=== PATIENT | female | born 1990 | race Caucasian/White ===

== ENCOUNTER 2020-10-05 16:33 | Outpatient (REF) | payer MEDICAID, SELFPAY | END 2020-10-05 16:34 | disposition home or self-care (01) | LOC: HO.LAB 16:33 | PROVIDERS: Visit Provider Internal Medicine | DX: Z20.822 Contact with and (suspected) exposure to COVID-19 (principal) | CPT/HCPCS: 36415; C9803; U0003; U0005 ==

== ENCOUNTER 2020-12-08 08:49 | Outpatient (REF) | payer MEDICAID, SELFPAY | END 2020-12-08 08:50 | disposition home or self-care (01) | LOC: HO.LAB 08:49 | PROVIDERS: Visit Provider Internal Medicine | DX: Z20.822 Contact with and (suspected) exposure to COVID-19 (principal) | CPT/HCPCS: C9803; U0003; U0005 ==

== ENCOUNTER 2021-01-31 08:06 | Outpatient (REF) | payer MEDICAID, SELFPAY | END 2021-01-31 08:07 | disposition home or self-care (01) | LOC: HO.LAB 08:06 | PROVIDERS: PCP Nurse Practitioner Family; Visit Provider Internal Medicine | DX: Z20.822 Contact with and (suspected) exposure to COVID-19 (principal) | CPT/HCPCS: C9803; U0003; U0005 ==

== ENCOUNTER 2021-02-06 11:52 | Emergency (ER) | payer MEDICAID, SELFPAY ==
[2021-02-06] VITALS (7 sets, daily range): BP systolic 138–152; BP diastolic 82–95; PULSE 72–92; RESP 14–18; TEMP 36.8–37.2; O2SAT 96–99; BMI 36.8
--- NOTE | ~2021-02-06 | CT_ITS ---
EXAMINATION: CT HEAD WITHOUT CONTRAST CLINICAL INFORMATION: Headache and right pupil pole medially COMPARISON: None TECHNIQUE: Contiguous axial imaging was performed from the skull base to vertex without intravenous administration of contrast. This CT examination was performed using dose optimization techniques as appropriate, variously including the following: *Automated exposure control *Adjustment of mA and/or kV according to patient size (this includes techniques or standardized protocols for targeted exams where dose is matched to indication/reason for exam; i.e. extremities or head) *Use of iterative reconstruction technique DLP: 633 mGy-cm FINDINGS: There are large bilateral subdural low-attenuation fluid collections suggestive of hygromas adjacent to the bilateral frontal and parietal lobes. This measures 1.7 cm in greatest thickness. This may represent residual of old subdural hematomas. There is a prominent cisterna magna versus posterior fossa midline arachnoid cyst. No other extra-axial collection is seen. There is no evidence of acute intra or extra-axial hemorrhage. There is mass effect seen on the bilateral frontal lobes from the bilateral subdural hygromas with slight effacement of the bilateral lateral ventricles. The ventricles and extra-axial CSF spaces are otherwise appropriate. [place]on-white matter differentiation is normal. No evidence of herniation, mass or infarct is seen. Review at bone windows is normal. No skull fracture is seen. Visualized paranasal sinuses, mastoid air cells and middle ears are clear. There is asynchronous gaze. CT/CT head/brain wo con IMPRESSION: Bilateral large low-attenuation extra-axial fluid collections suggestive of bilateral subdural hygromas. 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 No evidence of acute intra-axial or extra-axial hemorrhage. There is mass effect on both frontal lobes and slight effacement of the bilateral lateral ventricles. Prominent cisterna magna versus arachnoid cyst in the posterior fossa.
--- NOTE | 2021-02-06 14:13 | ED.HA ---
HPI - Headache General Chief Complaint: Headache Stated Complaint: head pain Time Seen by Provider: 02/06/21 14:13 Source: patient Mode of arrival: ambulatory History of Present Illness HPI Narrative: Patient has a history of migraine but has not had a headache for years. Now with blurry vision and difficulty getting around. 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 MD elicited complaint: headache Onset (ago): week(s) (2) Onset description: gradually Location: frontal Severity: moderate Associated symptoms: nausea and vomiting Related Data Allergies Allergy/AdvReac Type Severity Reaction Status Date / Time cefaclor [From [facility]] Allergy Hives Verified 02/06/21 12:03 Review of Systems Constitutional: Constitutional: Reports no additional constitutional complaints Eyes: Eyes: Reports no additional eye complaints ENT: Denies dizziness Cardiovascular: Cardiovascular: Reports no additional cardiovascular complaints Respiratory: Respiratory: Reports as per HPI Gastrointestinal: Gastrointestinal: Reports no additional gastrointestinal complaints Genitourinary: Genitourinary: Reports no additional female genitourinary complaints Musculoskeletal: Musculoskeletal: Reports no additional musculoskeletal complaints Integumentary/Breasts: Skin/Breast: Denies rash Neurologic: Reports system reviewed and no additional complaints, except as documented, Denies dizziness and Denies Sensory deficit (Neuro) Psychiatric: Psychiatric: Denies anxiety PMFSH Past Medical History Medical History ADHD Anxiety Asthma Special educational needs Social History Social History Alcohol intake: current Alcohol intake frequency: holidays/special occasions only Alcohol type: hard liquor Patient Tobacco Use Status: Never used Tobacco Use of substances other than those prescribed or required for medical reasons: Yes Substance Use Type: Marijuana Substance Use Frequency: Daily Substance Use Frequency Other:: 1 Last Used Substance: Days (ago) Advance Directives: No Advance Directives Information Provided: No Physical Exam Vital Signs: Vital Signs: Last Vital Signs Temp 98.2 F 02/06/21 16:04 Pulse 92 02/06/21 16:04 Resp 16 02/06/21 15:05 BP 147/95 H 02/06/21 16:04 Pulse Ox 98 02/06/21 16:04 Body Mass Index 36.8 Const: Other: abnormal affect General: healthy appearing Nutritional Appearance: average body habitus Orientation/consciousness: oriented to person and patient oriented x3 Limitations: no limitations HENMT: Head: Yes normal to inspection Ears: external ears normal General nose exam: Normal external nose present Mouth: Normal oral and palatal mucosa present and oropharynx normal Throat: Yes posterior oropharynx normal Eyes: Other: right eye with medial deviation but full range of motion Neck: Other: supple Neck: Yes normal visual inspection Chest: Chest palpation & inspection: normal inspection of the chest Resp: Auscultation: clear to auscultation bilaterally Cardio: Jugular venous distension: no JVD Rate: regular rate Rhythm: regular rhythm Heart sounds: S1 normal heart sound present and S2 normal heart sound present GI: Inspection: Yes normal to inspection Palpation (GI): Soft to palpation, nontender and No hepatosplenomegaly present Auscultation: normal bowel sounds : General: Yes no CVA tenderness Back/Spine/Pelvis: Back: no CVA tenderness Skin: General skin exam: no rashes or lesions noted Neuro: General: oriented to person and patient oriented x3 Cranial nerves: Yes CN's II-XII intact bilaterally Motor exam (neuro): 5/5 motor strength present throughout Sensory Exam: No Sensory deficit (Neuro) Extrem: General: Yes normal to inspection Psych: Appearance: grossly normal Course Reevaluation(s) Reevaluation #1: discussed with Dr. Pérez, with headache, 6th nerve palsy, double vision, off balance and large hygromas with mass effect he would transfer for neurosurgery. Discussed with Colette from [facility] neurosurgery awaiting call back Time: 16:25 [facility] - Headache Lab Data Result diagrams: 02/06/21 15:10 02/06/21 15:10 Labs: Lab Results 02/06/21 02/06/21 Range/Units 15:10 15:10 WBC 6.9 (4.8-10.8) X10*3/uL RBC 4.47 (4.20-5.50) X10*6/uL Hgb 13.5 (12.0-16.0) g/dl Hct 39.6 (37-47) % MCV 88.6 (80-98) fL MCH 30.2 (27.0-33.0) pg MCHC 34.1 (31.0-35.0) g/dl RDW 12.6 (11.0-16.0) % Plt Count 183 (160-400) X10*3/uL MPV 9.7 (9.4-12.3) fL Immature Gran % (Auto) 0.4 (0.0-0.4) % Neut % (Auto) 65.8 (45-73) % Lymph % (Auto) 22.3 (20-40) % [place] % (Auto) 6.9 (2-11) % Eos % (Auto) 3.9 (0-4) % Baso % (Auto) 0.7 (0-2) % Lymph # (Auto) 1.6 (1.2-4.9) X10*3/uL [place] # (Auto) 0.5 (0.1-1.2) X10*3/uL Eos # (Auto) 0.3 (0.0-0.4) X10*3/uL Baso # (Auto) 0.1 (0.0-0.2) X10*3/uL Abs Immat Gran (auto) 0.03 (0.00-0.03) X10*3/uL Absolute Neuts (auto) 4.6 (2.0-8.3) X10*3/uL Absolute Nucleated RBC 0.000 (0.0-0.012) X10*3/uL Nucleated RBC % (auto) 0.0 (0.0-0.2) /100WBC Sodium 137 (135-145) mmol/L Potassium 4.8 (3.3-5.1) mmol/L Chloride 103 (96-108) mmol/L Carbon Dioxide 24 (22-29) mmol/L Anion Gap 15 (12-20) BUN 11 (9-16) mg/dL Creatinine 0.66 (0.5-1.4) mg/dL Estim Creat Clear Calc 124.9 Estimated GFR > 60 Random Glucose 84 (60-115) mg/dL Calcium 9.4 (8.4-10.2) mg/dL Critical Care Time Critical Care Time Attestation: I spent 40 minutes of critical care, with interventions, assessments, speaking to patient, consultants, and family.
[2021-02-06] MEDS: Ketorolac Tromethamine 30 MG/ML VIAL IVPUSH (14:51)
[2021-02-06 15:14] LABS: MANUAL DIFF FLAG NO
[2021-02-06 15:15] LABS: Basophils Absolute Auto 0.1 X10*3/uL (0.0-0.2); Basophils Percent Auto 0.7 % (0-2); Eosinophils Absolute Auto 0.3 X10*3/uL (0.0-0.4); Eosinophils Percent Auto 3.9 % (0-4); Hematocrit 39.6 % (37-47); Hemoglobin 13.5 g/dl (12.0-16.0); Imm Gran Abs Auto 0.03 X10*3/uL (0.00-0.03); Imm Gran Pct Auto 0.4 % (0.0-0.4); Lymphocytes Absolute Auto 1.6 X10*3/uL (1.2-4.9); Lymphocytes Percent Auto 22.3 % (20-40); Mean Corpuscular HGB Conc 34.1 g/dl (31.0-35.0); Mean Corpuscular Hemoglobin 30.2 pg (27.0-33.0); Mean Corpuscular Volume 88.6 fL (80-98); Mean Platelet Volume 9.7 fL (9.4-12.3); Monocytes Absolute Auto 0.5 X10*3/uL (0.1-1.2); Monocytes Percent Auto 6.9 % (2-11); Neutrophils Absolute Auto 4.6 X10*3/uL (2.0-8.3); Neutrophils Percent Auto 65.8 % (45-73); Platelet Count 183 X10*3/uL (160-400); Red Blood Count 4.47 X10*6/uL (4.20-5.50); Red Cell Distribution Width 12.6 % (11.0-16.0); White Blood Count 6.9 X10*3/uL (4.8-10.8)
[2021-02-06 15:48] LABS: Anion Gap 15 (12-20); Blood Urea Nitrogen 11 mg/dL (9-16); Calcium 9.4 mg/dL (8.4-10.2); Carbon Dioxide 24 mmol/L (22-29); Chloride 103 mmol/L (96-108); Creatinine Clr Calc Pharmacy 124.9; Estimated Glomerular Filt Rate > 60; Glucose Random 84 mg/dL (60-115); Potassium 4.8 mmol/L (3.3-5.1); Sodium 137 mmol/L (135-145)
--- NOTE | 2021-02-06 17:07 | PC.NURSE ---
pt calm and cooperative, reports relief from IV Toradol. Mother at bedside, both pt and mother aware of plan to transfer to [facility].
[2021-02-06] MEDS: Butalb/Acetamin/Caff 50/325/40 TABLET 1 TAB PO (17:15)
[2021-02-06 17:27] LABS: COVID-19 Test Negative (Negative)
[2021-02-06] MEDS: oxyCODONE HCl Immed Release 5 MG TABLET PO (21:38)
--- NOTE | 2021-02-06 22:46 | PC.NURSE ---
room assignment recieved, special agent in charge will have private secretary process transfer paperwork.
--- NOTE | 2021-02-07 00:14 | PC.NURSE ---
report given to RN ON FANG 5A BY PHONE.
--- NOTE | 2021-02-07 01:00 | PC.NURSE ---
pt able to sit up on her own, moving all extremities and denies any extremity weakness. pt able to stand and pivot to stretcher. pt transported to [address] [facility].
== END 2021-02-07 01:08 | disposition short-term general hospital (02) ==
PROVIDERS: Emergency Provider Emergency Medicine; PCP Nurse Practitioner Family
DX: I62.03 Nontraumatic chronic subdural hemorrhage (principal); R51.9 Headache, unspecified; H53.8 Other visual disturbances; H49.20 Sixth [abducent] nerve palsy, unspecified eye; F12.90 Cannabis use, unspecified, uncomplicated
CPT/HCPCS: 36415; 70450; 80048; 85025; 87635; 96374; 99285; J1885

== ENCOUNTER 2022-06-28 07:57 | Outpatient (REF) | payer MEDICAID, SELFPAY ==
--- NOTE | ~2022-06-28 | XR_ITS ---
EXAMINATION: XR ANKLE, LEFT CLINICAL INFORMATION: Pain COMPARISON: None TECHNIQUE: AP, lateral, and mortise views of the left ankle. FINDINGS: The bones and soft tissues are normal. No fracture. Alignment is anatomic. Joint spaces are maintained. No joint effusion. XR/XR ankle LT min 3V IMPRESSION: Normal left ankle.
== END 2022-06-28 07:58 | disposition home or self-care (01) ==
LOC: HO.HOSX 07:57
PROVIDERS: Visit Provider Physician Assistant
DX: M25.572 Pain in left ankle and joints of left foot (principal); G89.29 Other chronic pain
CPT/HCPCS: 73610; 99202

== ENCOUNTER 2022-08-21 14:00 | Outpatient (RCR) | payer MEDICAID, SELFPAY ==
--- NOTE | 2022-08-02 15:02 | MHC.PT.EP ---
[facility] [place] Office [place] Office [place] Office [address] Gons[address] Lopez [address] [phone] F: [phone] F: [phone] F: [phone] F: [phone] Physical Therapy Plan of Care Date of Evaluation: Date of Surgery: Diagnosis: L ankle Assessment: 31 y/o female referred to PT with chronic L ankle pain. Her mother attended session and assisted with history intake. Reports poor balance her entire life but recently has had 2 L ankle sprains in the past year. Her ankle swells with increased weightbearing activity and reports difficulty with walking, hiking, dance exercises, and video games. 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 Examination shows decreased L ankle AROM, decreased L ankle/LE strength, poor proprioception, poor toe mobility, impaired balance, and impaired gait pattern. Recommend PT 2x/week for 4 weeks to address impairments, implement HEP, and optimize functional mobility. 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 Manual therapy to restore motion and function. Therapeutic exercise to improve strength and flexibility. Neuromuscular re-education for posture and balance. Therapeutic activities to return to functional activities of daily living. Electronically signed by: Yuli Aquino PT Please sign and return to therapist. Thank you for your referral.
--- NOTE | 2022-10-04 10:50 | MHC.PT.DC ---
[facility] [place] Office [place] Office [place] Office [address] [phone] F: [phone] F: [phone] F: [phone] F: [phone] Physical Therapy Discharge Report Diagnosis: L ankle Date of Surgery: Date of Evaluation: 08/02/22 Date of Discharge: 10/04/22 Treatments to Date: 4 Cancellations to Date: 4 No Shows to Date: 0 Discharge Status: Independent with HEP Visit Non-compliance Discharge Summary: Pt did not f/u with further visits following cancellations for being sick. She was I with HEP. At this time, she is d/c . Electronically signed by: Yuli Aquino PT Please sign and return to therapist. Thank you for your referral.
== END 2022-10-04 10:51 | disposition home or self-care (01) ==
LOC: HO.PTCHIC 14:00
PROVIDERS: PCP Nurse Practitioner Family; Visit Provider Physician Assistant
DX: M25.572 Pain in left ankle and joints of left foot (principal); G89.29 Other chronic pain
CPT/HCPCS: 97110; 97112; 97140; 97162